=== PATIENT | male | born 1930 | race Caucasian/White ===

== ENCOUNTER 2019-05-21 03:29 | Emergency (ER) | payer MEDICARE, BC ==
[~2019-05-21] VITALS: Ht 175.3 cm; Wt 90.0 kg
[~2019-05-21 03:29] MED LIST: AMOXICILLIN/CL875 MG OR; ASPIRIN325 MG PO; CRESTOR20 MG PO; FOLIC ACID400 MC1 OR; MULTIVITAMIN PO; TOPROL XL25 M1 PO; TOPROL XL25 MG PO
[2019-05-21] MEDS ORDERED: NORVASC2.5 M1 PO (03:52)
[2019-05-21] MEDS ORDERED: PAROXETINE10 MG PO (03:53)
[2019-05-21] MEDS ORDERED: VITAMIN B-121000 MCG PO (03:54)
[2019-05-21] MEDS ORDERED: ATORVASTATIN CA80 MG PO (03:55)
[2019-05-21] MEDS ORDERED: NAMZARIC 28-101 CAP PO (03:55)
[2019-05-21] MEDS ORDERED: ASPIRIN 8181 MG PO (03:56)
[2019-05-21] MEDS ORDERED: PROTONIX40 M2 PO (03:56)
[2019-05-21] MEDS ORDERED: DOCUSATE SOD100 M2 PO (03:57)
[2019-05-21] MEDS ORDERED: [UNRECOGNIZED DRUG - OTHER] PO (03:58)
[2019-05-21 04:05] VITALS: BP 139/60
== END 2019-05-21 04:13 ==
LOC: ED 03:29
DX: Z04.3 Encounter for examination and observation following other accident (principal); I10 Essential (primary) hypertension; F03.90 Unspecified dementia, unspecified severity, without behavioral disturbance, psychotic disturbance, mood disturbance, and anxiety

== ENCOUNTER 2019-07-14 23:05 | Emergency (ER) | payer MEDICARE, BC ==
[~2019-07-14] VITALS: Ht 175.3 cm; Wt 90.9 kg
[~2019-07-14 23:05] MED LIST changes: +ASPIRIN 8181 MG PO; +ATORVASTATIN CA80 MG PO; +DOCUSATE SOD100 M2 PO; +NAMZARIC 28-101 CAP PO; +NORVASC2.5 M1 PO; +PAROXETINE10 MG PO; +PROTONIX40 M2 PO; +VITAMIN B-121000 MCG PO; +[UNRECOGNIZED DRUG - OTHER] PO
[2019-07-14 23:36] LABS: HEMATOCRIT 32.3 % (39.0-50.0); HEMOGLOBIN 10.5 g/dl (14.0-18.0); MEAN CELL VOLUME 94.7 fL CALC (80.0-100.0); MEAN CORPUSCULAR HGB 30.8 pG CALC (26.0-32.0); MEAN CORPUSCULAR HGB CONC 32.5 g/L CALC (32.0-36.0); NEUT# 4.34 thou/uL (1.82-7.42); RED BLOOD COUNT 3.41 mill/uL (4.70-6.10); RED CELL DISTRI WIDTH 18.6 % (11.5-15.5)
[2019-07-14 23:43] LABS: ALBUMIN 3.8 g/dL (3.2-5.0); ALKALINE PHOSPHATASE 75 u/l (38-126); AMYLASE 63 u/l (30-110); ANION GAP 14 (6-22 (CALC)); BILIRUBIN, TOTAL 0.6 mg/dL (0.0-1.4); BUN 17 mg/dL (8-23); BUN/CREATININE RATIO 14 (12-20 (CALC)); CARBON DIOXIDE 21 mmol/l (22-30); CHLORIDE 106 mmol/l (95-108); CREATININE 1.3 mg/dL (0.7-1.3); GFR 52 ML/MIN (>=60 (CALC)); GFR FOR AFR.AMER. > 60 ML/MIN (>=60 (CALC)); LIPASE 76 u/l (23-300); POTASSIUM 2.8 mmol/l (3.5-5.1); SGOT/AST 36 u/l (19-48); SODIUM 138 mmol/l (137-146); TOTAL PROTEIN 6.8 g/dL (6.3-8.2)
[2019-07-15 04:36] VITALS: BP 169/72
== END 2019-07-15 04:36 | disposition short-term general hospital (02) ==
LOC: ED 23:05
PROVIDERS: Family Medicine
DX: K56.2 Volvulus (principal); I10 Essential (primary) hypertension; F03.90 Unspecified dementia, unspecified severity, without behavioral disturbance, psychotic disturbance, mood disturbance, and anxiety; K27.9 Peptic ulcer, site unspecified, unspecified as acute or chronic, without hemorrhage or perforation
CPT/HCPCS: Q9967

== ENCOUNTER 2019-08-03 11:27 | Emergency (ER) | payer MEDICARE, BC ==
[~2019-08-03] VITALS: Ht 175.3 cm; Wt 75.0 kg
[2019-08-03 14:02] VITALS: BP 135/90
== END 2019-08-03 14:04 ==
LOC: ED 11:27
DX: S61.411A Laceration without foreign body of right hand, initial encounter (principal); S51.011A Laceration without foreign body of right elbow, initial encounter; S01.311A Laceration without foreign body of right ear, initial encounter; I10 Essential (primary) hypertension; G30.9 Alzheimer's disease, unspecified; F02.80 Dementia in other diseases classified elsewhere, unspecified severity, without behavioral disturbance, psychotic disturbance, mood disturbance, and anxiety; W01.0XXA Fall on same level from slipping, tripping and stumbling without subsequent striking against object, initial encounter; Y92.099 Unspecified place in other non-institutional residence as the place of occurrence of the external cause